=== PATIENT | male | born 1955 | race Caucasian/White ===

== ENCOUNTER 2017-05-05 20:17 | Emergency (ER) | payer OTHER ==
[~2017-05-05] VITALS: Ht 172.7 cm; Wt 100.0 kg
[2017-05-05 20:27] VITALS: BP 127/76; PULSE 69; RESP 16; TEMP 98.7; O2SAT 99
[2017-05-05] MEDS ORDERED: METO25TA3 PO ×2 (20:48)
[2017-05-05] MEDS ORDERED: CLON.5 PO (20:48)
[2017-05-05] MEDS ORDERED: PARO30TA2 PO (20:48)
[2017-05-05] MEDS ORDERED: LEVO50TA4 PO (20:48)
[2017-05-05] MEDS ORDERED: HALOPERIDOL LACTATE 5 MG/ML AMP IV ONE (21:00)
[2017-05-05 21:02] LABS: AUTOMATED NEUTROPHIL # 4.4 TH/MM3 (1.8-7.7); BASOPHIL # 0.1 TH/MM3 (0-0.2); BASOPHIL % 0.7 % (0.0-2.0); EOSINOPHIL # 0.1 TH/MM3 (0-0.4); HEMO FLAGS DIFF FINAL; LYMPH % 23.1 % (9.0-44.0); LYMPHOCYTE # 1.6 TH/MM3 (1.0-4.8); MEAN CELL VOLUME 92.8 FL (80.0-100.0); MEAN CORPUSCULAR HEMOGLOBIN 31.1 PG (27.0-34.0); MEAN CORPUSCULAR HGB CONC 33.5 % (32.0-36.0); MONO % 11.1 % (0.0-8.0); NEUT % 63.1 % (16.0-70.0); PLATELET COUNT 251 TH/MM3 (150-450); RED BLOOD COUNT 4.42 MIL/MM3 (4.50-5.90); RED CELL DISTRIBUTION WIDTH 13.9 % (11.6-17.2); WHITE BLOOD COUNT 6.9 TH/MM3 (4.0-11.0)
[2017-05-05 21:12] LABS: ALT (GPT) 116 U/L (12-78)
[2017-05-05 21:13] LABS: ALKALINE PHOSPHATASE 94 U/L (45-117); TOTAL BILIRUBIN ADULT 0.5 MG/DL (0.2-1.0)
[2017-05-05 21:21] LABS: ANION GAP 12 MEQ/L (5-15); AST (GOT) 60 U/L (15-37); BICARBONATE 21.8 MEQ/L (21.0-32.0); BLOOD UREA NITROGEN 9 MG/DL (7-18); CHLORIDE 103 MEQ/L (98-107); GLOMERULAR FILTRATION RATE 79 ML/MIN (>89); POTASSIUM 4.1 MEQ/L (3.5-5.1); SODIUM (NA) 137 MEQ/L (136-145)
--- NOTE | 2017-05-05 21:21 | PD ---
HPI Chief Complaint: Psychiatric Symptoms Time Seen by Provider: 20:34 Travel History International Travel<30 days: No Contact w/Intl Traveler<30days: No Traveled to known affect area: No History of Present Illness HPI 62-year-old white male presents to emergency department by EMS under Shook act by PD. The patient has history of Ashland's chorea. He also has a history of depression and coronary artery disease. Patient today became acutely depressed. He stated that he wanted to lay down across the railroad tracks. Patient also has fits of anger and rage periodically. Patient became physically aggressive and was restrained. Patient was given 2 mg of Ativan IV on his transport to the ER this evening. Patient was also placed in 4. soft restraints. The patient states that is been compliant with his antidepressant but he has run out of his Klonopin because he has been taking it more frequently than usual. He does admit to drinking alcohol earlier today. Patient has a complaint of persistent intermittent nausea with occasional episodes of vomiting. He last vomited earlier this afternoon. He denies any fever or chills. No chest pain or shortness of breath. No abdominal pain or urinary symptoms. No stooling issues. He denies any toxic ingestions. He states that he has episodes of anger or rage which she cannot explain why. He just started seeing a new doctor Dr. Vallejo. He had moved to [place] from [place] this past month. He was kicked out of his apartment that he had lived with a former girlfriend. He has not associated himself on a new primary care doctor here in [facility]. PFSH Past Medical History Narrative Medical Anxiety, depression, coronary artery disease, PA, Pinky's chorea, hypothyroidism Anxiety: Yes Depression: Yes Cardiac Catheterization: Yes Diminished Hearing: No Hypertension: Yes Neurologic: Yes (PINKY'S DISEASE) Psychiatric: Yes ("ANGER ISSUES") Myocardial Infarction: Yes (X1) Thyroid Disease: Yes (HYPO) Tetanus Vaccination: Unknown Influenza Vaccination: No Past Surgical History Narrative Surgical PTCA with stent, CABG, repeat PTCA with stent Coronary Artery Bypass Graft: Yes Coronary Stent: Yes (X8) Social History Alcohol Use: Yes (DAILY, 3 BEERS TODAY) Tobacco Use: No Substance Use: Yes (MARIJUANA) Allergies-Medications (Allergen,Severity, Reaction): Coded Allergies: No Known Allergies (Unverified , 05/05/17) Reported Meds & Prescriptions Reported Meds & Active Scripts Active Reported Paroxetine (Paroxetine HCl) 30 Mg Tab 30 Mg PO DAILY Levothyroxine (Levothyroxine Sodium) 50 Mcg Tab 50 Mcg PO DAILY Metoprolol Tartrate 25 Mg Tab 25 Mg PO HS Metoprolol Tartrate 25 Mg Tab 50 Mg PO DAILY Klonopin (Clonazepam) 0.5 Mg Tab 0.5 Mg PO BID Review of Systems Except as stated in HPI: all other systems reviewed are Neg Psychiatric: Positive: Depression, Suicidal Ideations, Mood Disorder, Substance Abuse, No: Anxiety, Disorder of Thought, Homicidal Ideation Physical Exam Narrative GENERAL: Well-nourished, well-developed patient. SKIN: Warm and dry. HEAD: Normocephalic and atraumatic. EYES: No scleral icterus. No injection or drainage. ENT: No nasal drainage noted. Mucous membranes pink. Airway patent. NECK: Supple, trachea midline. Moves head freely without obvious discomfort. CARDIOVASCULAR: Regular rate and rhythm without murmurs, gallops, or rubs. RESPIRATORY: Breath sounds equal bilaterally. No accessory muscle use. GASTROINTESTINAL: Abdomen soft, non-tender, nondistended. EXTREMITIES: No cyanosis or edema. BACK: Nontender without obvious deformity. No CVA tenderness. NEURO: Patient is alert and oriented. Patient has what appears to be some tics with spastic movement.. Normal speech. PSYCH: No delusions. No auditory or visual hallucinations. Patient is agitated Data Data Last Documented VS Vital Signs Date Time Temp Pulse Resp B/P (MAP) Pulse Ox O2 Delivery O2 Flow Rate FiO2 05/05/17 22:16 62 18 113/63 (80) 97 Room Air 05/05/17 20:27 98.7 Orders Orders Complete Blood Count With Diff (05/05/17 20:35) Comprehensive Metabolic Panel (05/05/17 20:35) Urinalysis - C+S If Indicated (05/05/17 20:35) Iv Access Insert/Monitor (05/05/17 20:35) Psych Screen (05/05/17 20:35) Restraints Violent (05/05/17 20:35) Drug Screen, Random Urine (05/05/17 20:35) Alcohol (Ethanol) (05/05/17 20:35) Thyroid Stimulating Hormone (05/05/17 20:49) Haloperidol Inj (Haldol Inj) (05/05/17 21:00) Labs Laboratory Tests Test 05/05/17 20:30 05/05/17 21:15 White Blood Count 6.9 TH/MM3 Red Blood Count 4.42 MIL/MM3 Hemoglobin 13.7 GM/DL Hematocrit 41.0 % Mean Corpuscular Volume 92.8 FL Mean Corpuscular Hemoglobin 31.1 PG Mean Corpuscular Hemoglobin Concent 33.5 % Red Cell Distribution Width 13.9 % Platelet Count 251 TH/MM3 Mean Platelet Volume 7.6 FL Neutrophils (%) (Auto) 63.1 % Lymphocytes (%) (Auto) 23.1 % Monocytes (%) (Auto) 11.1 % Eosinophils (%) (Auto) 2.0 % Basophils (%) (Auto) 0.7 % Neutrophils # (Auto) 4.4 TH/MM3 Lymphocytes # (Auto) 1.6 TH/MM3 Monocytes # (Auto) 0.8 TH/MM3 Eosinophils # (Auto) 0.1 TH/MM3 Basophils # (Auto) 0.1 TH/MM3 CBC Comment DIFF FINAL Differential Comment Blood Urea Nitrogen 9 MG/DL Creatinine 0.96 MG/DL Random Glucose 81 MG/DL Total Protein 6.1 GM/DL Albumin 2.9 GM/DL Calcium Level 8.4 MG/DL Alkaline Phosphatase 94 U/L Aspartate Amino Transf (AST/SGOT) 60 U/L Alanine Aminotransferase (ALT/SGPT) 116 U/L Total Bilirubin 0.5 MG/DL Sodium Level 137 MEQ/L Potassium Level 4.1 MEQ/L Chloride Level 103 MEQ/L Carbon Dioxide Level 21.8 MEQ/L Anion Gap 12 MEQ/L Estimat Glomerular Filtration Rate 79 ML/MIN Ethyl Alcohol Level 116 MG/DL Urine Color LIGHT-YELLOW Urine Turbidity CLEAR Urine pH 5.5 Urine Specific [place] 1.002 Urine Protein NEG mg/dL Urine Glucose (UA) NEG mg/dL Urine Ketones NEG mg/dL Urine Occult Blood NEG Urine Nitrite NEG Urine Bilirubin NEG Urine Urobilinogen LESS THAN 2.0 MG/DL Urine Leukocyte Esterase NEG Urine RBC LESS THAN 1 /hpf Urine WBC 1 /hpf Microscopic Urinalysis Comment CULT NOT INDICATED Urine Opiates Screen NEG Urine Barbiturates Screen NEG Urine Amphetamines Screen NEG Urine Benzodiazepines Screen NEG Urine Cocaine Screen NEG Urine Cannabinoids Screen NEG MDM Medical Decision Making Medical Screen Exam Complete: Yes Emergency Medical Condition: Yes Medical Record Reviewed: Yes Interpretation(s) Laboratory Tests Test 05/05/17 20:30 05/05/17 21:15 White Blood Count 6.9 TH/MM3 Red Blood Count 4.42 MIL/MM3 Hemoglobin 13.7 GM/DL Hematocrit 41.0 % Mean Corpuscular Volume 92.8 FL Mean Corpuscular Hemoglobin 31.1 PG Mean Corpuscular Hemoglobin Concent 33.5 % Red Cell Distribution Width 13.9 % Platelet Count 251 TH/MM3 Mean Platelet Volume 7.6 FL Neutrophils (%) (Auto) 63.1 % Lymphocytes (%) (Auto) 23.1 % Monocytes (%) (Auto) 11.1 % Eosinophils (%) (Auto) 2.0 % Basophils (%) (Auto) 0.7 % Neutrophils # (Auto) 4.4 TH/MM3 Lymphocytes # (Auto) 1.6 TH/MM3 Monocytes # (Auto) 0.8 TH/MM3 Eosinophils # (Auto) 0.1 TH/MM3 Basophils # (Auto) 0.1 TH/MM3 CBC Comment DIFF FINAL Differential Comment Blood Urea Nitrogen 9 MG/DL Creatinine 0.96 MG/DL Random Glucose 81 MG/DL Total Protein 6.1 GM/DL Albumin 2.9 GM/DL Calcium Level 8.4 MG/DL Alkaline Phosphatase 94 U/L Aspartate Amino Transf (AST/SGOT) 60 U/L Alanine Aminotransferase (ALT/SGPT) 116 U/L Total Bilirubin 0.5 MG/DL Sodium Level 137 MEQ/L Potassium Level 4.1 MEQ/L Chloride Level 103 MEQ/L Carbon Dioxide Level 21.8 MEQ/L Anion Gap 12 MEQ/L Estimat Glomerular Filtration Rate 79 ML/MIN Ethyl Alcohol Level 116 MG/DL Urine Color LIGHT-YELLOW Urine Turbidity CLEAR Urine pH 5.5 Urine Specific [place] 1.002 Urine Protein NEG mg/dL Urine Glucose (UA) NEG mg/dL Urine Ketones NEG mg/dL Urine Occult Blood NEG Urine Nitrite NEG Urine Bilirubin NEG Urine Urobilinogen LESS THAN 2.0 MG/DL Urine Leukocyte Esterase NEG Urine RBC LESS THAN 1 /hpf Urine WBC 1 /hpf Microscopic Urinalysis Comment CULT NOT INDICATED Urine Opiates Screen NEG Urine Barbiturates Screen NEG Urine Amphetamines Screen NEG Urine Benzodiazepines Screen NEG Urine Cocaine Screen NEG Urine Cannabinoids Screen NEG Differential Diagnosis MDM: High Differential diagnoses: Schizophrenia, schizoaffective disorder, bipolar, anxiety, depression, adjustment reaction, mood disorder NOS, dementia with agitation, psychosis NOS, substance induced mood disorder, Pinky's, infection,electrolyte abnormality, malingering. Narrative Course Mental health screening discussed with the patient. Psychiatric screen ordered. Order for violent restraints has been placed. Patient has a IV in his left forearm. Patient's given additional 5 mg of Haldol IV. Patient will be taken out of restraints as his agitation and combativeness improves. The patient has been taken out of restraints. He is calm and cooperative now. The patient is medically cleared. This is medical clearance for psychiatric admission, Ashland's chorea Diagnosis Primary Impression: Medical clearance for psychiatric admission Additional Impression: Huntingtons chorea Condition: Stable Salvatore Krause May 05, 2017 21:21
[2017-05-05 21:31] LABS: BLOOD, URINE NEG (NEG); COMMENT (UR) CULT NOT INDICATED; CULTURE IF INDICATED CULT NOT INDICATED; GLUCOSE,URINE NEG (NEG); KETONE, URINE NEG (NEG); NITRITE,URINE NEG (NEG); PH, URINE 5.5 (5.0-8.5); URINE COLOR LIGHT-YELLOW (YELLW/STRAW)
[2017-05-05 21:32] LABS: ALCOHOL 116 MG/DL (0-5)
[2017-05-05 22:16] VITALS: BP 113/63; PULSE 62; RESP 18; O2SAT 97
[2017-05-06 03:34] VITALS: BP 113/63; PULSE 55; RESP 17; O2SAT 97
[2017-05-06 06:48] VITALS: BP 113/59; PULSE 64; RESP 17; O2SAT 98
[2017-05-06 07:23] VITALS: BP 116/68; PULSE 61; RESP 17; O2SAT 98
[2017-05-06 12:20] VITALS: BP 127/69; PULSE 59; RESP 20; O2SAT 96
[2017-05-06 22:38] VITALS: BP 124/76; PULSE 66; RESP 18
[2017-05-06] MEDS: METOPROLOL TARTRATE 25 MG TAB PO SCH (22:45)
[2017-05-06] MEDS: clonazePAM 0.5 MG TAB PO SCH (22:45)
[2017-05-06] MEDS ORDERED: LEVOTHYROXINE SODIUM 50 MCG TAB PO ONE (22:45)
[2017-05-07 01:45] VITALS: BP 124/75; PULSE 59; RESP 16; TEMP 97.2; O2SAT 96
[2017-05-07 05:54] VITALS: BP 134/65; PULSE 54; RESP 18; TEMP 97.2; O2SAT 97
[2017-05-07] MEDS: clonazePAM 0.5 MG TAB PO SCH (09:00)
[2017-05-07] MEDS: METOPROLOL TARTRATE 25 MG TAB PO SCH (09:00)
--- NOTE | 2017-05-07 09:51 | PD ---
Physical Exam Time Seen by Provider: 09:47 Narrative I spoke with RACHELE Ortega, who has evaluated the patient and lifted the Shook act and the patient will be discharged home. Data Data Last Documented VS Vital Signs Date Time Temp Pulse Resp B/P (MAP) Pulse Ox O2 Delivery O2 Flow Rate FiO2 05/07/17 05:54 97.2 54 18 134/65 (88) 97 05/06/17 22:38 Room Air Orders Orders Complete Blood Count With Diff (05/05/17 20:35) Comprehensive Metabolic Panel (05/05/17 20:35) Urinalysis - C+S If Indicated (05/05/17 20:35) Iv Access Insert/Monitor (05/05/17 20:35) Psych Screen (05/05/17 20:35) Restraints Violent (05/05/17 20:35) Drug Screen, Random Urine (05/05/17 20:35) Alcohol (Ethanol) (05/05/17 20:35) Thyroid Stimulating Hormone (05/05/17 20:49) Haloperidol Inj (Haldol Inj) (05/05/17 21:00) Diet Regular Basic (05/06/17 Breakfast) Diet Regular Basic (05/06/17 Lunch) Diet Regular Basic (05/06/17 Dinner) Metoprolol Tartrate (Lopressor) (05/06/17 22:45) Levothyroxine (Synthroid) (05/06/17 22:45) Clonazepam (Klonopin) (05/06/17 22:45) Diet Regular Basic (05/07/17 Breakfast) Labs Laboratory Tests Test 05/05/17 20:30 05/05/17 21:15 White Blood Count 6.9 TH/MM3 Red Blood Count 4.42 MIL/MM3 Hemoglobin 13.7 GM/DL Hematocrit 41.0 % Mean Corpuscular Volume 92.8 FL Mean Corpuscular Hemoglobin 31.1 PG Mean Corpuscular Hemoglobin Concent 33.5 % Red Cell Distribution Width 13.9 % Platelet Count 251 TH/MM3 Mean Platelet Volume 7.6 FL Neutrophils (%) (Auto) 63.1 % Lymphocytes (%) (Auto) 23.1 % Monocytes (%) (Auto) 11.1 % Eosinophils (%) (Auto) 2.0 % Basophils (%) (Auto) 0.7 % Neutrophils # (Auto) 4.4 TH/MM3 Lymphocytes # (Auto) 1.6 TH/MM3 Monocytes # (Auto) 0.8 TH/MM3 Eosinophils # (Auto) 0.1 TH/MM3 Basophils # (Auto) 0.1 TH/MM3 CBC Comment DIFF FINAL Differential Comment Blood Urea Nitrogen 9 MG/DL Creatinine 0.96 MG/DL Random Glucose 81 MG/DL Total Protein 6.1 GM/DL Albumin 2.9 GM/DL Calcium Level 8.4 MG/DL Alkaline Phosphatase 94 U/L Aspartate Amino Transf (AST/SGOT) 60 U/L Alanine Aminotransferase (ALT/SGPT) 116 U/L Total Bilirubin 0.5 MG/DL Sodium Level 137 MEQ/L Potassium Level 4.1 MEQ/L Chloride Level 103 MEQ/L Carbon Dioxide Level 21.8 MEQ/L Anion Gap 12 MEQ/L Estimat Glomerular Filtration Rate 79 ML/MIN Thyroid Stimulating Hormone 3rd Gen 2.320 uIU/ML Ethyl Alcohol Level 116 MG/DL Urine Color LIGHT-YELLOW Urine Turbidity CLEAR Urine pH 5.5 Urine Specific [place] 1.002 Urine Protein NEG mg/dL Urine Glucose (UA) NEG mg/dL Urine Ketones NEG mg/dL Urine Occult Blood NEG Urine Nitrite NEG Urine Bilirubin NEG Urine Urobilinogen LESS THAN 2.0 MG/DL Urine Leukocyte Esterase NEG Urine RBC LESS THAN 1 /hpf Urine WBC 1 /hpf Microscopic Urinalysis Comment CULT NOT INDICATED Urine Opiates Screen NEG Urine Barbiturates Screen NEG Urine Amphetamines Screen NEG Urine Benzodiazepines Screen NEG Urine Cocaine Screen NEG Urine Cannabinoids Screen NEG MDM Supervised Visit with TEDDY: No Narrative Course I spoke with RACHELE Ortega, who has evaluated the patient and lifted the Shook act and the patient will be discharged home. The patient was intoxicated with alcohol when he made the statement of wanting to lay in traffic. He has follow- up with Dr. Vallejo. He currently denies suicidal ideation. Patient has outpatient follow-up and support. Patient is stable for discharge. Diagnosis Primary Impression: Alcohol abuse with alcohol-induced mood disorder Additional Impressions: Medical clearance for psychiatric admission Huntingtons chorea Referrals: Primary Care Physician Psychiatrist [facility] Patient Instructions: Abuse of Alcohol (ED), Alcohol Dependence (ED), Alcohol Intoxication (ED), General Instructions, Mood Disorders (ED) Additional Instruction: Follow-up with psychiatry Follow-up with primary care provider Follow-up with Dr. Vallejo Return to the emergency department immediately with worsening of symptoms Med/Other Pt SpecificInfo: No Meds Exist/No RX given Disposition: 01 DISCHARGE HOME Condition: Stable Yaima Borges May 07, 2017 09:51
--- NOTE | 2017-05-07 11:09 | PD ---
History of Present Illness Chief Complaint: Psychiatric Symptoms Time Seen by Provider: 09:05 Travel History International Travel<30 Days: No Contact w/Intl Traveler<30days: No Known affected area: No Legal Status Legal Status: Shook Act Shook Act Signed By: John Hayward History of Present Illness: History of Present Illness HPI 62-year-old white male with history of depression and [place]'s chorea who presents to emergency department by EMS under Shook act by . The BA alleges that he was having suicidal thoughts and he made a statement that he wanted to lay on the railroad tracks. He reports that he called 911 " because he " was having a Pinky's fit and I needed a shot.". When the police and EMT arrived they asked him if he felt suicidal and he stated " I have those railroad tracks nearby". To that he claims the officer responded " you have just earned yourself 2 days ". He was also under the influence of alcohol, admits to drinking alcohol that day and his BAl on arrival to ED was 116. No previous contact with [facility] psychiatry team. He as monitored in J pod with no behavioral concerns and no suicidality. He is alert and oriented. Speech is clear and logical. There is no psychosis and no fidel. He denies any suicidal or homicidal ideation and states " I was angry and I was acting out.. I called the police so that I could get a shot from the paramedics like I have done before and they kept asking me " Do you feel like hurting yourself?" he does admit that he has been drinking more than usual after a 10 year period of sobriety. He denies any previous suicide attempt. He is future oriented and is worried that his girlfriend has not heard from him today. He just started seeing a new doctor, Dr. Vallejo. [facility] Past Medical History Anxiety: Yes Depression: Yes Cardiac Catheterization: Yes Diminished Hearing: No Hypertension: Yes Neurologic: Yes (PINKY'S DISEASE) Psychiatric: Yes ("ANGER ISSUES") Myocardial Infarction: Yes (X1) Thyroid Disease: Yes (HYPO) Tetanus Vaccination: Unknown Influenza Vaccination: No Past Surgical History Coronary Artery Bypass Graft: Yes Coronary Stent: Yes (X8) Psychiatric History Psychiatric History Hx Psychiatric Treatment: DENIES any previous. No previous suicide attempts History of Inpatient Treatment: No Guns or firearms in home: No Social History Single male. Lives by himself. has 2 adult children. Moved to [place] 8 months ago from [place]. On disability due to medical issues. Hx Alcohol Use: Yes (DAILY, 3 BEERS TODAY) Hx Tobacco Use: No Hx Substance Use: Yes (MARIJUANA) Substance Use Type: Alcohol, Marijuana Hx of Substance Use Treatment: Yes Family Psychiatric History None Allergies-Medications (Allergen,Severity, Reaction): Coded Allergies: No Known Allergies (Unverified , 05/05/17) Reported Meds & Prescriptions Reported Meds & Active Scripts Active Reported Paroxetine (Paroxetine HCl) 30 Mg Tab 30 Mg PO DAILY Levothyroxine (Levothyroxine Sodium) 50 Mcg Tab 50 Mcg PO DAILY Metoprolol Tartrate 25 Mg Tab 25 Mg PO HS Metoprolol Tartrate 25 Mg Tab 50 Mg PO DAILY Klonopin (Clonazepam) 0.5 Mg Tab 0.5 Mg PO BID Review of Systems Neurologic: COMPLAINS OF: Poor Balance Exam Alert: Yes [place]: Person (ox4) Mood: Calm Affect: Appropriate Speech: Clear, Logical Eye Contact: Normal Memory Intact: Comment (No impairment) Hallucinations: Other (Negative) Delusions: No Suicidal: Ideation (Deneis any) Homicidal: Ideation (Deneis any) Insight/Judgement Fair. Not impaired. MDM Medical Decision Making Medical Record Reviewed: Yes Assessment/Plan 62-year-old white male with history of depression and Metlakatla's chorea who presents to emergency department by EMS under Shook act by PD. The BA alleges that he was having suicidal thoughts and he made a statement that he wanted to lay on the railroad tracks. He reports that he called 911 " because he " was having a Pinky's fit and I needed a shot.". He denies any suicidal or homicidal ideation intent or plan. No evidence of unstable mental illness as defined under the Shook act. Future oriented. Admits to feeling depressed when he drinks and was intoxicated when the Shook act was initiated. Will follow up with . Patient to return to psychiatric emergency room for any psychiatric concerns. Patient is psychiatrically clear fro discharge from ED. Shook act is lifted. Orders Orders Diet Regular Basic (05/06/17 Lunch) Diet Regular Basic (05/06/17 Dinner) Metoprolol Tartrate (Lopressor) (05/06/17 22:45) Levothyroxine (Synthroid) (05/06/17 22:45) Clonazepam (Klonopin) (05/06/17 22:45) Diet Regular Basic (05/07/17 Breakfast) Results Vital Signs Date Time Temp Pulse Resp B/P (MAP) Pulse Ox O2 Delivery O2 Flow Rate FiO2 05/07/17 05:54 97.2 54 18 134/65 (88) 97 05/07/17 01:45 97.2 59 16 124/75 (91) 96 05/06/17 22:38 66 18 124/76 (92) Room Air 05/06/17 12:20 59 20 127/69 (88) 96 Room Air Diagnosis Primary Impression: Alcohol abuse with alcohol-induced mood disorder Additional Impression: Huntingtons chorea Psychiatrically Cleared: Yes Med/ Other Pt Specific Info: No Meds Exist/No RX given Disposition: 01 DISCHARGE HOME Condition: Stable Problem Qualifiers Shannon Reaves May 07, 2017 11:09
== END 2017-05-07 10:12 | disposition home or self-care (01) ==
LOC: NEPD 20:17 → NEPJ 05-07 10:12
DX: F10.14 Alcohol abuse with alcohol-induced mood disorder (principal); G10 Huntington's disease; E03.9 Hypothyroidism, unspecified; Y90.5 Blood alcohol level of 100-119 mg/100 ml; Z79.899 Other long term (current) drug therapy
CPT/HCPCS: 80053; 80307; 81001; 84443; 85025; 96374; 99285; J1630

== ENCOUNTER 2017-09-16 22:31 | Emergency (ER) | payer MEDICARE, OTHER ==
[~2017-09-16] VITALS: Ht 172.7 cm; Wt 84.2 kg
[~2017-09-16 22:31] MED LIST: CLON.5 PO; LEVO50TA4 PO; METO25TA3 PO; PARO30TA2 PO
[2017-09-16 22:43] VITALS: BP 133/84; PULSE 95; RESP 18; TEMP 98.3; O2SAT 98
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
[2017-09-17] MEDS ORDERED: PERC5TAB12 PO (00:12)
[2017-09-17] MEDS ORDERED: oxyCODONE/ACETAMINOPHEN 7.5 MG/325 MG TAB PO ONE (00:15)
== END 2017-09-17 02:12 | disposition home or self-care (01) ==
LOC: PHED 22:31
DX: S82.62XD Displaced fracture of lateral malleolus of left fibula, subsequent encounter for closed fracture with routine healing (principal); F41.8 Other specified anxiety disorders; I25.2 Old myocardial infarction; G10 Huntington's disease; I10 Essential (primary) hypertension; F12.90 Cannabis use, unspecified, uncomplicated; W20.8XXD Other cause of strike by thrown, projected or falling object, subsequent encounter; Z95.1 Presence of aortocoronary bypass graft; Z95.5 Presence of coronary angioplasty implant and graft
CPT/HCPCS: 29515; 73590; 73610; 99283; E0113

== ENCOUNTER 2017-12-20 18:42 | Emergency (ER) | payer MEDICARE, OTHER ==
[~2017-12-20] VITALS: Ht 172.7 cm; Wt 85.0 kg
[~2017-12-20 18:42] MED LIST changes: +PERC5TAB12 PO
[2017-12-20 18:48] VITALS: BP 146/80; PULSE 95; RESP 31; TEMP 98.1; O2SAT 97
[2017-12-20] MEDS ORDERED: LORazepam 2 MG/ML VIAL IV PUSH ONE (19:15)
[2017-12-20] MEDS ORDERED: SODIUM CHLORIDE 0.9% FLUSH 10 ML FLUSH IV FLUSH PRN (19:15)
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
[2017-12-20 19:34] LABS: AUTOMATED NEUTROPHIL # 4.1 TH/MM3 (1.8-7.7); BASOPHIL # 0.1 TH/MM3 (0-0.2); BASOPHIL % 1.1 % (0.0-2.0); EOSINOPHIL # 0.2 TH/MM3 (0-0.4); EOSINOPHIL % 2.2 % (0.0-4.0); HEMATOCRIT 45.3 % (39.0-51.0); HEMOGLOBIN 15.8 GM/DL (13.0-17.0); LYMPH % 31.7 % (9.0-44.0); LYMPHOCYTE # 2.3 TH/MM3 (1.0-4.8); MEAN CELL VOLUME 88.1 FL (80.0-100.0); MEAN CORPUSCULAR HEMOGLOBIN 30.7 PG (27.0-34.0); MEAN CORPUSCULAR HGB CONC 34.8 % (32.0-36.0); MEAN PLATELET VOLUME 7.5 FL (7.0-11.0); MONO % 7.5 % (0.0-8.0); MONOCYTE # 0.5 TH/MM3 (0-0.9); NEUT % 57.5 % (16.0-70.0); PLATELET COUNT 255 TH/MM3 (150-450); RED BLOOD COUNT 5.14 MIL/MM3 (4.50-5.90); RED CELL DISTRIBUTION WIDTH 12.8 % (11.6-17.2); WHITE BLOOD COUNT 7.2 TH/MM3 (4.0-11.0)
[2017-12-20 19:47] LABS: PROTHROMBIN TIME - PATIENT 10.1 SEC (9.8-11.6)
[2017-12-20 19:49] LABS: ALBUMIN 3.6 GM/DL (3.4-5.0); ALT (GPT) 42 U/L (12-78); AST (GOT) 46 U/L (15-37); BLOOD UREA NITROGEN 10 MG/DL (7-18); CALCIUM 8.9 MG/DL (8.5-10.1); CHLORIDE 108 MEQ/L (98-107); GLOMERULAR FILTRATION RATE 61 ML/MIN (>89); GLUCOSE,RANDOM 94 MG/DL (74-106); SODIUM (NA) 141 MEQ/L (136-145)
[2017-12-20 19:59] LABS: ALKALINE PHOSPHATASE 99 U/L (45-117); TOTAL BILIRUBIN ADULT 0.4 MG/DL (0.2-1.0); TOTAL PROTEIN 7.5 GM/DL (6.4-8.2)
--- NOTE | 2017-12-20 20:04 | RADRPT ---
EXAM DATE/TIME: 12/20/2017 19:43 [facility] COMPARISON: No previous studies available for comparison. INDICATIONS : Altered mental status. RADIATION DOSE: 37.67 CTDIvol (mGy) MEDICAL HISTORY : None SURGICAL HISTORY : None. ENCOUNTER: Initial ACUITY: 1 day PAIN SCALE: 0/10 LOCATION: cranial TECHNIQUE: Multiple contiguous axial images were obtained of the head. Using automated exposure control and adj ustment of the mA and/or kV according to patient size, radiation dose was kept as low as reasonably a chievable to obtain optimal diagnostic quality images. DICOM format image data is available electro nically for review and comparison. FINDINGS: CEREBRUM: The ventricles are normal for age. No evidence of midline shift, mass lesion, hemorrhage or acute in farction. No extra-axial fluid collections are seen. POSTERIOR FOSSA: The cerebellum and brainstem are intact. The 4th ventricle is midline. The cerebellopontine angle i s unremarkable. EXTRACRANIAL: The visualized portion of the orbits is intact. SKULL: The calvaria is intact. No evidence of skull fracture. CONCLUSION: Negative noncontrast CT Carlos A Mendoza MD on December 20, 2017 at 20:00 Board Certified Radiologist. This report was verified electronically.
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
[2017-12-20 20:14] VITALS: BP 108/59; PULSE 75; RESP 17; O2SAT 97
== END 2017-12-20 23:20 | disposition home or self-care (01) ==
LOC: NEPC 18:42
DX: G10 Huntington's disease (principal); E03.9 Hypothyroidism, unspecified; I10 Essential (primary) hypertension; M25.572 Pain in left ankle and joints of left foot; Z79.899 Other long term (current) drug therapy
CPT/HCPCS: 70450; 73610; 80053; 80307; 84443; 85025; 85610; 85730; 96374; 99285; E0113; J2060; L2114